=== PATIENT | female | born 1970 | race Caucasian/White ===

== ENCOUNTER 2017-09-24 19:29 | Emergency (ER) | payer OTHER ==
[~2017-09-24] VITALS: Ht 160 cm; Wt 108.9 kg
[~2017-09-24 19:29] MED LIST: ACETAMINOPHEN-1 EAC1 PO; APAP500 PO; BENTYL20 MG PO; CARAFATE 11 GM/10 M1 PO; CEPHALEXIN 500500 M3 PO; CIPRO500 MG PO; HYDROCODON-ACE1 EAC7 PO; HYDROCODONE-AP1 EAC6 PO; HYDROCODONE-APA1 TA1 PO; IBUPROFEN 200200 M1 PO; IBUPROFEN 400400 M2 PO; IBUPROFEN 800800 M1 PO; MILK OF MA2400 MG/10 PO; NEXIUM20 MG PO; NEXIUM40 MG; NEXIUM40 MG PO; NOHOMEMEDICATIONS; NORCO 5-325 TA1 EAC1 PO; NORCO 5-325 TA1 EACH PO; ONDANSETRON HCL4 M2; ONDANSETRON HCL4 M2 PO; PAXIL 20 MG TAB20 MG PO; PAXIL10 MG; PEPCID AC20 M1 PO; PHENADOZ25 MG RC; PHENERGAN 25 MG25 M1 PO; PHENERGAN 25 MG25 MG PO; PROMETHAZINE HC25 M1; PROMETHAZINE HC25 M2 PO; PROMS25 WY RECTAL; PROTONIX40 M1 PO; REGLAN 10 MG TA10 MG PO; THERAGRAN-M PR1 EAC1 PO; TRAMADOL 50 MG50 MG PO; TYLENOL325 MG PO; ULTRACET TABLE1 EACH PO; ULTRAM 50MG TAB50 MG PO; ULTRAM50 MG PO; XANAX 0.5 MG0.5 MG PO; ZANTAC 150MG T150 MG PO; ZOFRAN ODT4 MG PO; ZOFRAN ODT4 MG SUBLING; ZOFRAN4 MG PO
[2017-09-24] MEDS ORDERED: IBUPROFEN 800800 M1 PO (19:39)
[2017-09-24] MEDS ORDERED: ZANTAC 150MG T150 MG PO (19:39)
[2017-09-24 19:55] LABS: URINE BILIRUBIN NEGATIVE (Negative); URINE BLOOD NEGATIVE (Negative); URINE CLARITY CLEAR; URINE COLOR YELLOW; URINE GLUCOSE-RANDOM NEGATIVE (Negative); URINE KETONES NEGATIVE (Negative); URINE LEUKOCYTES-REFLEX NEGATIVE (Negative); URINE NITRITE-REFLEX NEGATIVE (Negative); URINE PROTEIN NEGATIVE (Negative); URINE SPECIFIC GRAVITY 1.025 (1.005-1.030); URINE UROBILINOGEN 0.2 E.U./dl (0.2-1.0)
[2017-09-24 20:05] LABS: ABSOLUTE BASOPHILS 0.1 thou/uL (0.0-0.2); ABSOLUTE EOSINOPHILS 0.1 thou/uL (0.0-0.7); ABSOLUTE LYMPHOCYTES 2.3 thou/uL (0.8-5.3); ABSOLUTE MONOCYTES 0.6 thou/uL (0.0-1.2); ABSOLUTE NEUTROPHILS 5.2 thou/uL (1.6-8.1); BASOPHILS 1.3 %; EOSINOPHILS 1.3 %; HEMATOCRIT 36.3 % (37.0-47.0); MCH 28.8 pg (26.0-34.0); MCV 87.2 fL (80.0-100.0); MONOCYTES 7.8 %; NUCLEATED RBCS 0 /100WBC; PLATELET COUNT* 210 thou/uL (150-400); POLYS 61.6 %; RBC 4.16 mil/uL (4.20-5.00); RDW-CV 15.6 % (10.5-14.5); WBC 8.4 thou/uL (4.0-11.0)
[2017-09-24 20:17] LABS: CALCIUM 8.5 mg/dL (8.5-10.1); CREATININE 0.9 mg/dL (0.6-1.3); POTASSIUM 4.1 mmol/L (3.5-5.1)
[2017-09-24 20:21] LABS: ALBUMIN 3.2 g/dL (3.4-5.0); TOTAL BILIRUBIN 0.1 mg/dL (<0.1-1.0)
[2017-09-24] MEDS ORDERED: PHENERGAN 25 MG25 M1 PO (20:28)
[2017-09-24] MEDS ORDERED: TRAMADOL 50 MG50 MG PO (20:28)
[2017-09-24 20:35] VITALS: BP 144/80
== END 2017-09-24 20:36 | disposition still patient (30) ==
LOC: M.ERS 19:29
PROVIDERS: Nurse Practitioner Family
DX: K80.50 Calculus of bile duct without cholangitis or cholecystitis without obstruction (principal); F32.9 Major depressive disorder, single episode, unspecified; F17.210 Nicotine dependence, cigarettes, uncomplicated; Z98.890 Other specified postprocedural states

== ENCOUNTER 2017-10-13 14:36 | Emergency (ER) | payer OTHER ==
[~2017-10-13] VITALS: Ht 160 cm; Wt 111.1 kg
[2017-10-13] MEDS ORDERED: PROMETHAZINE12.5 M1 PO (14:41)
[2017-10-13 14:54] LABS: URINE BILIRUBIN NEGATIVE (Negative); URINE BLOOD 1+ (Negative); URINE CLARITY CLEAR; URINE COLOR YELLOW; URINE GLUCOSE-RANDOM NEGATIVE (Negative); URINE KETONES NEGATIVE (Negative); URINE LEUKOCYTES-REFLEX NEGATIVE (Negative); URINE NITRITE-REFLEX NEGATIVE (Negative); URINE PROTEIN NEGATIVE (Negative); URINE UROBILINOGEN 0.2 E.U./dl (0.2-1.0)
[2017-10-13 15:01] LABS: SQUAMOUS 4-10 Moderate /LPF (0-3)
[2017-10-13 15:02] LABS: BACTERIA-REFLEX 1-9 Few /HPF (None Seen); CASTS None Seen /LPF (None Seen); CRYSTALS None Seen /LPF (None Seen); URINE WBC-REFLEX 6-15 Few /HPF (0-5)
[2017-10-13 15:11] LABS: ABSOLUTE BASOPHILS 0.1 thou/uL (0.0-0.2); ABSOLUTE EOSINOPHILS 0.1 thou/uL (0.0-0.7); ABSOLUTE LYMPHOCYTES 1.5 thou/uL (0.8-5.3); ABSOLUTE MONOCYTES 0.4 thou/uL (0.0-1.2); ABSOLUTE NEUTROPHILS 4.2 thou/uL (1.6-8.1); BASOPHILS 1.1 %; EOSINOPHILS 1.6 %; HEMATOCRIT 34.4 % (37.0-47.0); HEMOGLOBIN 11.5 gm/dL (12.0-15.0); LYMPHOCYTES 23.4 %; MCHC 33.4 g/dL (28.0-37.0); MCV 86.9 fL (80.0-100.0); MONOCYTES 6.4 %; MPV 9.4 fl. (7.2-11.1); NUCLEATED RBCS 0 /100WBC; PLATELET COUNT* 203 thou/uL (150-400); POLYS 67.5 %; RBC 3.96 mil/uL (4.20-5.00); RDW-CV 15.7 % (10.5-14.5); WBC 6.2 thou/uL (4.0-11.0)
[2017-10-13 15:17] LABS: CALCIUM 7.9 mg/dL (8.5-10.1); CREATININE 0.8 mg/dL (0.6-1.3); POTASSIUM 3.5 mmol/L (3.5-5.1)
[2017-10-13 15:21] LABS: TOTAL BILIRUBIN 0.2 mg/dL (<0.1-1.0); TOTAL PROTEIN 6.6 g/dL (6.4-8.2)
[2017-10-13] MEDS ORDERED: PHENERGAN 25 MG25 M1 PO (15:35)
[2017-10-13 15:46] VITALS: BP 135/66
[2017-10-13] MEDS ORDERED: TRAMADOL 50 MG50 MG PO (15:51)
== END 2017-10-13 15:46 | disposition home or self-care (01) ==
LOC: M.ERS 14:36
PROVIDERS: Nurse Practitioner Family
DX: K80.20 Calculus of gallbladder without cholecystitis without obstruction (principal); F32.9 Major depressive disorder, single episode, unspecified; F17.210 Nicotine dependence, cigarettes, uncomplicated; Z90.49 Acquired absence of other specified parts of digestive tract; Z98.890 Other specified postprocedural states

== ENCOUNTER 2017-11-08 15:38 | Emergency (ER) | payer OTHER ==
[~2017-11-08] VITALS: Ht 160 cm; Wt 114.5 kg
[~2017-11-08 15:38] MED LIST changes: +PROMETHAZINE12.5 M1 PO
[2017-11-08 16:15] LABS: URINE BILIRUBIN NEGATIVE (Negative); URINE BLOOD NEGATIVE (Negative); URINE CLARITY CLEAR; URINE COLOR YELLOW; URINE GLUCOSE-RANDOM NEGATIVE (Negative); URINE KETONES NEGATIVE (Negative); URINE LEUKOCYTES-REFLEX NEGATIVE (Negative); URINE NITRITE-REFLEX NEGATIVE (Negative); URINE PROTEIN NEGATIVE (Negative); URINE SPECIFIC GRAVITY <= 1.005 (1.005-1.030); URINE UROBILINOGEN 0.2 E.U./dl (0.2-1.0)
[2017-11-08 16:22] LABS: AMP/METHAMP Negative (Negative); BARBITURATES Negative (Negative); BENZODIAZEPINES Negative (Negative); COCAINE Negative (Negative); METHADONE Negative (Negative); OPIATES Negative (Negative); PCP Negative (Negative); THC Negative (Negative)
[2017-11-08 16:46] LABS: CALCIUM 8.7 mg/dL (8.5-10.1); CREATININE 0.8 mg/dL (0.6-1.3); POTASSIUM 4.4 mmol/L (3.5-5.1)
[2017-11-08 16:47] LABS: ABSOLUTE BASOPHILS 0.1 thou/uL (0.0-0.2); ABSOLUTE EOSINOPHILS 0.1 thou/uL (0.0-0.7); ABSOLUTE LYMPHOCYTES 1.9 thou/uL (0.8-5.3); ABSOLUTE MONOCYTES 0.6 thou/uL (0.0-1.2); ABSOLUTE NEUTROPHILS 4.9 thou/uL (1.6-8.1); BASOPHILS 0.8 %; EOSINOPHILS 1.5 %; HEMOGLOBIN 11.4 gm/dL (12.0-15.0); LYMPHOCYTES 25.3 %; MCH 28.9 pg (26.0-34.0); MCHC 33.5 g/dL (28.0-37.0); MCV 86.3 fL (80.0-100.0); MPV 9.6 fl. (7.2-11.1); NUCLEATED RBCS 0 /100WBC; PLATELET COUNT* 248 thou/uL (150-400); POLYS 64.4 %; RBC 3.93 mil/uL (4.20-5.00); WBC 7.5 thou/uL (4.0-11.0)
[2017-11-08 16:50] LABS: ALBUMIN 3.3 g/dL (3.4-5.0); TOTAL BILIRUBIN 0.1 mg/dL (<0.1-1.0); TOTAL PROTEIN 6.6 g/dL (6.4-8.2)
[2017-11-08] MEDS ORDERED: ZOFRAN4 MG PO (17:47)
[2017-11-08] MEDS ORDERED: ULTRAM 50MG TAB50 MG PO (17:47)
[2017-11-08 17:59] VITALS: BP 145/80
== END 2017-11-08 18:00 | disposition home or self-care (01) ==
LOC: M.ERS 15:38
PROVIDERS: Personal Emergency Response Attendant
DX: K80.50 Calculus of bile duct without cholangitis or cholecystitis without obstruction (principal)

== ENCOUNTER 2017-11-30 23:08 | Emergency (ER) | payer OTHER ==
[~2017-11-30] VITALS: Ht 167.6 cm; Wt 99.8 kg
[2017-11-30 23:37] LABS: ABSOLUTE BASOPHILS 0.1 thou/uL (0.0-0.2); ABSOLUTE EOSINOPHILS 0.1 thou/uL (0.0-0.7); ABSOLUTE LYMPHOCYTES 2.2 thou/uL (0.8-5.3); ABSOLUTE MONOCYTES 0.6 thou/uL (0.0-1.2); ABSOLUTE NEUTROPHILS 4.8 thou/uL (1.6-8.1); BASOPHILS 0.8 %; EOSINOPHILS 1.6 %; HEMOGLOBIN 11.3 gm/dL (12.0-15.0); LYMPHOCYTES 28.1 %; MCH 28.9 pg (26.0-34.0); MCHC 33.2 g/dL (28.0-37.0); MONOCYTES 7.5 %; MPV 9.8 fl. (7.2-11.1); NUCLEATED RBCS 0 /100WBC; PLATELET COUNT* 224 thou/uL (150-400); RBC 3.91 mil/uL (4.20-5.00); RDW-CV 15.7 % (10.5-14.5); WBC 7.8 thou/uL (4.0-11.0)
[2017-11-30 23:47] LABS: CALCIUM 8.4 mg/dL (8.5-10.1); CREATININE 0.9 mg/dL (0.6-1.3); POTASSIUM 3.7 mmol/L (3.5-5.1)
[2017-11-30 23:51] LABS: ALBUMIN 3.1 g/dL (3.4-5.0); TOTAL BILIRUBIN 0.2 mg/dL (<0.1-1.0); TOTAL PROTEIN 6.7 g/dL (6.4-8.2)
[2017-12-01 00:34] VITALS: BP 131/91
[2017-12-01] MEDS ORDERED: TRAMADOL 50 MG50 MG PO (00:34)
== END 2017-12-01 00:35 | disposition home or self-care (01) ==
LOC: M.ERS 23:08
PROVIDERS: Emergency Medicine
DX: K80.50 Calculus of bile duct without cholangitis or cholecystitis without obstruction (principal); F17.210 Nicotine dependence, cigarettes, uncomplicated

== ENCOUNTER 2017-12-13 23:05 | Emergency (ER) | payer OTHER ==
[~2017-12-13] VITALS: Ht 160 cm; Wt 113.4 kg
[2017-12-13] MEDS ORDERED: PHENERGAN 25 MG25 M1 (23:27)
[2017-12-13] MEDS ORDERED: ULTRAM 50MG TAB50 MG PO (23:40)
[2017-12-13] MEDS ORDERED: ZOFRAN ODT4 MG SUBLING (23:40)
[2017-12-14] VITALS: BP 136/115
== END 2017-12-14 00:01 | disposition home or self-care (01) ==
LOC: M.ERS 23:05
DX: G89.29 Other chronic pain (principal); R10.11 Right upper quadrant pain; F32.9 Major depressive disorder, single episode, unspecified; F17.210 Nicotine dependence, cigarettes, uncomplicated; Z90.49 Acquired absence of other specified parts of digestive tract

== ENCOUNTER 2018-01-09 00:28 | Emergency (ER) | payer OTHER ==
[~2018-01-09 00:28] MED LIST changes: +PHENERGAN 25 MG25 M1
== END 2018-01-09 00:40 | disposition left against medical advice (07) ==
LOC: M.ERS 00:28
DX: Z53.21 Procedure and treatment not carried out due to patient leaving prior to being seen by health care provider (principal)

== ENCOUNTER 2018-01-11 21:16 | Emergency (ER) | payer OTHER ==
[~2018-01-11] VITALS: Ht 160 cm; Wt 111.1 kg
[2018-01-11 22:35] LABS: ABSOLUTE EOSINOPHILS 0.1 thou/uL (0.0-0.7); ABSOLUTE LYMPHOCYTES 2.3 thou/uL (0.8-5.3); ABSOLUTE MONOCYTES 0.7 thou/uL (0.0-1.2); ABSOLUTE NEUTROPHILS 5.4 thou/uL (1.6-8.1); BASOPHILS 0.4 %; EOSINOPHILS 1.6 %; HEMATOCRIT 37.4 % (37.0-47.0); HEMOGLOBIN 12.2 gm/dL (12.0-15.0); LYMPHOCYTES 27.2 %; MCH 28.7 pg (26.0-34.0); MCHC 32.5 g/dL (28.0-37.0); MCV 88.3 fL (80.0-100.0); MPV 10.3 fl. (7.2-11.1); NUCLEATED RBCS 0 /100WBC; PLATELET COUNT* 180 thou/uL (150-400); POLYS 62.8 %; RBC 4.24 mil/uL (4.20-5.00); RDW-CV 17.2 % (10.5-14.5); WBC 8.6 thou/uL (4.0-11.0)
[2018-01-11 22:43] LABS: CALCIUM 8.4 mg/dL (8.5-10.1); CREATININE 0.7 mg/dL (0.6-1.3); POTASSIUM 3.5 mmol/L (3.5-5.1)
[2018-01-11 22:47] LABS: TOTAL BILIRUBIN 0.1 mg/dL (<0.1-1.0); TOTAL PROTEIN 6.9 g/dL (6.4-8.2)
[2018-01-11] MEDS ORDERED: TRAMADOL 50 MG50 MG PO (23:25)
[2018-01-11 23:58] VITALS: BP 143/80
== END 2018-01-12 | disposition home or self-care (01) ==
LOC: M.ERS 21:16
PROVIDERS: Nurse Practitioner Family
DX: R10.11 Right upper quadrant pain (principal); F32.9 Major depressive disorder, single episode, unspecified; F17.210 Nicotine dependence, cigarettes, uncomplicated; Z98.890 Other specified postprocedural states; Z90.49 Acquired absence of other specified parts of digestive tract

== ENCOUNTER 2018-01-30 14:20 | Emergency (ER) | payer OTHER ==
[~2018-01-30] VITALS: Ht 160 cm; Wt 68.0 kg
[2018-01-30 14:30] LABS: URINE BILIRUBIN NEGATIVE (Negative); URINE BLOOD NEGATIVE (Negative); URINE CLARITY SL CLOUDY; URINE COLOR YELLOW; URINE GLUCOSE-RANDOM NEGATIVE (Negative); URINE KETONES NEGATIVE (Negative); URINE LEUKOCYTES NEGATIVE (Negative); URINE NITRITE NEGATIVE (Negative); URINE PROTEIN NEGATIVE (Negative); URINE UROBILINOGEN 0.2 E.U./dl (0.2-1.0)
[2018-01-30 14:35] LABS: MUCUS 0-3 Light strn/LPF (None Seen); SQUAMOUS >10 Many /LPF (0-3)
[2018-01-30 14:36] LABS: BACTERIA 1-9 Few /HPF (None Seen); CASTS None Seen /LPF (None Seen); CRYSTALS None Seen /LPF (None Seen)
[2018-01-30 14:37] LABS: URINE RBC 0-2 Rare /HPF (0-2); URINE WBC 0-5 Rare /HPF (0-5)
[2018-01-30 14:53] LABS: ABSOLUTE BASOPHILS 0.1 thou/uL (0.0-0.2); ABSOLUTE EOSINOPHILS 0.1 thou/uL (0.0-0.7); ABSOLUTE LYMPHOCYTES 1.9 thou/uL (0.8-5.3); ABSOLUTE MONOCYTES 0.6 thou/uL (0.0-1.2); ABSOLUTE NEUTROPHILS 5.3 thou/uL (1.6-8.1); BASOPHILS 1.2 %; EOSINOPHILS 1.4 %; HEMATOCRIT 36.9 % (37.0-47.0); HEMOGLOBIN 12.1 gm/dL (12.0-15.0); LYMPHOCYTES 23.5 %; MCH 28.6 pg (26.0-34.0); MCHC 32.7 g/dL (28.0-37.0); MCV 87.3 fL (80.0-100.0); MONOCYTES 7.9 %; MPV 9.5 fl. (7.2-11.1); NUCLEATED RBCS 0 /100WBC; PLATELET COUNT* 262 thou/uL (150-400); RBC 4.22 mil/uL (4.20-5.00); RDW-CV 18.1 % (10.5-14.5)
[2018-01-30 15:00] LABS: CALCIUM 8.6 mg/dL (8.5-10.1); CREATININE 0.7 mg/dL (0.6-1.3); POTASSIUM 3.7 mmol/L (3.5-5.1)
[2018-01-30 15:09] LABS: TOTAL BILIRUBIN 0.1 mg/dL (<0.1-1.0)
[2018-01-30] MEDS ORDERED: TRAMADOL 50 MG50 MG PO (15:55)
[2018-01-30] MEDS ORDERED: KEFLEX500 M1 PO (16:13)
[2018-01-30 16:17] VITALS: BP 131/87
--- NOTE | 2018-01-31 18:41 | EKG ---
[place] [address] ELECTROCARDIOGRAM REPORT Name: MARIE MEDRANO Room: [facility]#: [id number] Admission: 01/30/18 Attend Phys: Discharge: 01/30/18 Date of : 72 Report #: [id number] THIS REPORT FOR: //name// [facility] ED Test Date: 2018-01-30 Test Time: 14:58:56 Pat Name: MARIE MEDRANO Department: Room: Gender: F [employer]: JEFE : 1970 Requested By: Libia Seo Order Number: [id number] MD: Stefan Tran Measurements Intervals [place] Rate: 79 P: 11 DC: 160 QRS: 25 QRSD: 89 T: 37 QT: 372 QTc: 427 Interpretive Statements Sinus rhythm Low voltage, precordial leads Compared to ECG 05/10/2017 18:23:55 Low QRS voltage now present Electronically Signed On 01-31-2018 18:41:02 CDT by Stefan Tran [email or web address] <ELECTRONICALLY SIGNED> By: Stefan Tran MD, [facility] 01/31/18 1841 [id number] 1458 Stefan Tran MD, FACC /EPI
== END 2018-01-30 16:18 | disposition home or self-care (01) ==
LOC: M.ERS 14:20
PROVIDERS: Physician Assistant
DX: R11.2 Nausea with vomiting, unspecified (principal); R10.13 Epigastric pain; F32.9 Major depressive disorder, single episode, unspecified; F17.210 Nicotine dependence, cigarettes, uncomplicated; Z90.49 Acquired absence of other specified parts of digestive tract

== ENCOUNTER 2018-05-15 20:58 | Emergency (ER) | payer OTHER ==
[~2018-05-15] VITALS: Ht 160 cm; Wt 113.4 kg
[~2018-05-15 20:58] MED LIST changes: +KEFLEX500 M1 PO
[2018-05-15 21:13] VITALS: BP 155/101
== END 2018-05-15 21:53 | disposition left against medical advice (07) ==
LOC: M.ERS 20:58
DX: R10.9 Unspecified abdominal pain (principal); Z53.21 Procedure and treatment not carried out due to patient leaving prior to being seen by health care provider

== ENCOUNTER 2021-05-16 17:53 | Emergency (ER) | payer OTHER ==
[~2021-05-16] VITALS: Ht 160 cm; Wt 127.0 kg
[2021-05-16 18:04] VITALS: BP 136/83
[2021-05-16] MEDS ORDERED: FAMOTIDINE 20 M20 MG PO (18:07)
[2021-05-16] MEDS ORDERED: AMOXIL 875 MG875 M1 PO (18:17)
== END 2021-05-16 18:32 | disposition home or self-care (01) ==
LOC: M.ERS 17:53
DX: K02.9 Dental caries, unspecified (principal); F32.9 Major depressive disorder, single episode, unspecified; F17.210 Nicotine dependence, cigarettes, uncomplicated; Z98.890 Other specified postprocedural states; Z98.51 Tubal ligation status; Z90.49 Acquired absence of other specified parts of digestive tract; Z87.42 Personal history of other diseases of the female genital tract

== ENCOUNTER 2021-08-05 18:09 | Emergency (ER) | payer OTHER ==
[~2021-08-05] VITALS: Ht 160 cm; Wt 122.5 kg
[~2021-08-05 18:09] MED LIST changes: +AMOXIL 875 MG875 M1 PO; +FAMOTIDINE 20 M20 MG PO
[2021-08-05 18:56] LABS: INFLUENZA A ANTIGEN Negative (Negative); INFLUENZA B ANTIGEN Negative (Negative)
[2021-08-05] MEDS ORDERED: AUGMENTIN 875-1 EACH PO (19:13)
[2021-08-05] MEDS ORDERED: NAPROSYN500 MG PO (19:13)
[2021-08-05 19:38] VITALS: BP 120/71
== END 2021-08-05 19:39 | disposition home or self-care (01) ==
LOC: M.ERS 18:09
PROVIDERS: Physician Assistant
DX: U07.1 COVID-19 (principal); H66.91 Otitis media, unspecified, right ear; F17.210 Nicotine dependence, cigarettes, uncomplicated; Z79.899 Other long term (current) drug therapy; Z98.51 Tubal ligation status; Z98.890 Other specified postprocedural states